=== PATIENT | female | born 1970 | race Hispanic/Latino ===

== ENCOUNTER → 2017-08-19 | Day surgery (SDC) | payer OTHER ==
[~2017-08-19] MED LIST: CEFTRIAXONE SOD 1 GM VIAL ONE; FENTANYL CITRATE/PF 100MCG/2 ML INJ ONE; IOPAMIDOL 610MG/1ML 300 MG/ML VIAL IV ONE; MIDAZOLAM HCL 2 MG/2 ML VIAL ONE
--- NOTE | 2017-08-19 12:44 | Diagnostic Imaging Report ---
PROCEDURE:X-RAY ABDOMEN - KUB COMPARISON:Retrograde pyelogram 07/02/17. INDICATIONS:PRE OP KIDNEY STONE REMOVAL FINDINGS: Bowel gas pattern: Normal. No dilated bowel loops. Organomegaly: None Calcifications: A subtle calcification over the right renal shadow measures 3-4 mm. Calcification overlying the left renal shadow, lower pole, measures 16 x 11 mm. This was present on previous exam. There no calcifications along the expected course of the ureters or in the pelvis. Bones: Degenerative changes of the lower lumbar spine. CONCLUSION: Bilateral intrarenal calculi. Calculus in the lower pole of the left kidney measures 16 mm and is stable in position. A right intrarenal calculus measures 3-4 mm. Unremarkable bowel gas pattern. Dictated by: Paz Doyle M.D. on 08/19/2017 at 12:51 Electronically approved by: Pza Doyle M.D. on 08/19/2017 at 12:51
--- NOTE | 2017-08-19 16:28 | Operative Report ---
DATE OF PROCEDURE: August 19, 2017 PREOPERATIVE DIAGNOSES 1. Left kidney stone. 2. Left hydronephrosis. 3. Microscopic hematuria. POSTOPERATIVE DIAGNOSES 1. Left kidney stone. 2. Left hydronephrosis. 3. Microscopic hematuria. PROCEDURES 1. Cystourethroscopy with right ureteral catheterization and right retrograde pyelogram (entirely separate procedure for microscopic hematuria). 2. Cystourethroscope with insertion of left indwelling stent (entirely separate procedure for left lower pole hydronephrosis). 3. Staged left-side shockwave lithotripsy. 4. Supervision of fluoroscopy. 5. Interpretation of retrograde pyelography. ANESTHESIA: General. COMPLICATIONS: None. INDICATIONS: Ms. Hinojosa is a 47-year-old female with a 1.75 x 1.5 cm left lower pole stone with segmental hydronephrosis. She has failed trial of passage. She and I had a long discussion in regard to the alternatives, the risks, and benefits including doing nothing, shockwave lithotripsy, ureteroscopy, percutaneous surgery, stent placement and the fact that the stent is a temporary indwelling device that must be removed and the failure to do so could cause incrustation, infection, inflammation of the natural ostium of the kidney, and even . She elected to proceed. PROCEDURE IN DETAIL: After informed consent was obtained, the patient was taken to the operative suite and placed supine on the operating table and underwent general anesthesia by the anesthesia service. She was then placed in the dorsal lithotomy position and sterilely prepped and draped in the standard fashion for cystoscopy. A 22.5-Botswanan cystoscope was inserted per urethra. No masses noted. Panendoscopy revealed no tumors and no stones. Both ureteral orifices were catheterized with a 5-Botswanan open-ended catheter. Retrograde pyelogram on the right side was normal. Left revealed a very large 1.7 x 0.5 cm renal calculus with hydronephrosis in avery. Ureteral stent was deployed, 6 x 24 cm, with a coil in the renal pelvis and a coil in the bladder. The patient's bladder was drained. Attention was then turned to the stone which was localized in X, Y, and Z planes. A total of 3000 shocks were delivered to the stone. The patient tolerated the procedure well, and was transported to the recovery room in excellent condition. No untoward affects noted SUPERVISION OF FLUOROSCOPY AND INTERPRETATION OF RETROGRADE PYELOGRAPHY: I was present the entire procedure, and I supervised the use of fluoroscopy. There was no radiologist present at any time during this procedure. Attention was turned toward the left and right ureteral orifice, which were catheterized with a 5-Botswanan open-ended catheter. Bilateral retrograde pyelograms were performed. On the right, revealed delicate ureter and delicate pelvicaliceal system. On the left, delicate ureter, a very large 1.75 x 1.5 cm lower pole stone with hydronephrosis in the avery. Postoperative views on the let side revealed stent in adequate position. IMPRESSION 1. Normal right retrograde pyelogram. 2. Large left lower pole stone, 1.75 x 1.5 cm. 3. Left lower pole stent in adequate position. Job#: [id number]
== END | disposition home or self-care (01) ==
LOC: OR 11:27
PROVIDERS: ATTEND Urology
DX: N13.2 Hydronephrosis with renal and ureteral calculous obstruction (principal); N39.0 Urinary tract infection, site not specified; R35.1 Nocturia; Z68.31 Body mass index [BMI] 31.0-31.9, adult
CPT/HCPCS: 50590; 52332; 74000; 81025; C1874; J0696; J2250; Q9967

== ENCOUNTER → 2017-10-02 | Day surgery (SDC) | payer OTHER ==
[~2017-10-02] MED LIST changes: +DEXAMETHASONE SOD PHOS INJ 4 MG/ML VIAL ONE; +KETOROLAC TROMETHAMINE 30 MG/ML VIAL ONE; +LIDOCAINE HCL 2% LOCAL INJ 5 ML SDV VIAL INJ ONE; +ONDANSETRON HCL INJ 2 MG/ML VIAL ONE; +OXYBUTYNIN CHLOR5 MG PO; +PROPOFOL IV EMULSION 10 MG/ML 20 ML VIAL ONE; +ROCURONIUM BROMIDE 10 MG/ML 5ML VIAL ONE; +SEVOFLURANE INHAL SOLN 250 ML PEN BTL ONE
--- OUTSIDE RECORDS SUMMARY | 2017-10-02 06:34 | XMS REPORT | Clinical Summary ---
Author Author [facility] Organization [facility] Address Unknown Phone Unavailable Care Team Providers Care Mottler Machine Feeder Name Role Phone Asked, Pcp PCP Unavailable Allergies No Known Allergies Current Medications Prescription Sig. Disp. Refills Start End Date Status Date levoFLOXacin (LEVAQUIN) Take 1 tablet (500 mg 7 tablet 0 06/09/20 500 MG tablet total) by mouth daily for 17 17 7 days. HYDROcodone-acetaminophen Take 1 tablet by mouth 30 tablet 0 06/09/20 07/09/20 (NORCO) 5-325 mg per every 4 (four) hours as 17 17 tablet needed for moderate pain for up to 30 days. Max Daily Amount: 6 tablets Active Problems Problem Noted Date Hydronephrosis due to obstruction of ureter 06/09/2017 Ureterolithiasis 06/06/2017 Encounters Date Type Specialty Care Team Description 06/09/2017 Patient Quality Tita Tovar RN Outreach 06/08/2017 Anesthesia General Surgery Papo Post MD Event 06/08/2017 Procedure Pass General Surgery 06/08/2017 Surgery General Surgery Dario Quintero MD Left Ureteroscopy with Stone Laser 06/06/2017 [facility] General Internal Medicine Hilary Levine MD Ureterolithiasis (Primary - Encounter Dx) 06/09/2017 after 10/01/2016 Social History Tobacco Use Types Packs/Day Years Used Date Never Smoker Smokeless Tobacco: Never Used Alcohol Use Drinks/Week oz/Week Comments No Sex Assigned at Date Recorded Not on file Last Filed Vital Signs Vital Sign Reading Time Taken Blood Pressure 140/76 06/09/2017 7:12 AM CDT Pulse 72 06/09/2017 7:12 AM CDT Temperature 36.1 C (97 F) 06/09/2017 7:12 AM CDT Respiratory Rate 18 06/09/2017 7:12 AM CDT Oxygen Saturation 98% 06/09/2017 7:12 AM CDT Inhaled Oxygen - - Concentration Weight - - Height 152.4 cm (5') 06/06/2017 7:31 PM CDT Body Mass Index - - Plan of Treatment Health Maintenance Due Date Last Done Comments PAP SMEAR 1989 INFLUENZA VACCINE 03/31/2017 Implants Implanted Type Area Roll Coating Machine Operator Device Expiration Model / Identifier Date Serial / Lot Stent Uretl Inlay Domino 6fr 22cm Surgical Left: [employer] 2019 [id number] / W/ Marcio Guardado Ltxf - [id number] Stents Ureter, DIVISION / Implanted: Qty: 1 on 06/08/2017 by [place] [id number] Dario Quintero MD Procedures Procedure Name Priority Date/Time Associated Diagnosis Comments WI AN ELECTIVE Routine 06/08/2017 SUPRAGLOTTIC AIRWAY 1:07 PM CDT Procedure Note - Papo Post MD - 06/08/2017 1:07 PM CDT Airway Date/Time: 06/08/2017 1:05 PM Performed by: PAPO POST Authorized by: PAPO POST Location: OR Urgency: Elective Difficult Airway: No Performed by: anesthesio logist Preoxygena rd with 100% O2: Yes C-spine Precaution s Maintained Throughout : Yes Mask Ventilatio n: Easy mask Final Airway Type: Supraglott ic airway Final LMA: Classic LMA Size: 3 Number of Attempts at Approach: 1 after 10/01/2016 Results * Estimated GFR (06/09/2017 4:20 AM) Only the most recent of 3 results within the time period is included. Component Value Ref Range GFR Non Af Amer 89 mL/min/1.73 m2 GFR Af Amer >90 mL/min/1.73 m2 Comment: Chronic kidney disease: <60 mL/min/1.73m2 Kidney failure: <15 mL/min/1.73m2 The estimated GFR is calculated from the IDMS-traceable Modification of Diet in Renal Disease Equation. The accuracy of the calculation is poor when the creatinine is normal. Calculated values >90 mL/min/1.73m2 are not reported. This equation has not been validated in children (<18 years), women, the elderly (>70 years), or ethnic groups other than Caucasians and Americans. Specimen Performing Laboratory Plasma specimen [facility] [address] [place] [address] * CBC with platelet and differential (06/09/2017 4:20 AM) Only the most recent of 3 results within the time period is included. Component Value Ref Range WBC 11.5 (H) 4.2 - 11.0 k/uL RBC 4.29 4.04 - 5.86 m/uL HGB 13.5 11.5 - 15.3 g/dL HCT 40.4 34.0 - 45.0 % MCV 94.2 80.0 - 98.0 fL MCH 31.5 27.0 - 34.0 pg MCHC 33.4 31.5 - 36.5 g/dL RDW - SD 43.3 37.0 - 51.0 fL MPV 10.4 7.4 - 10.4 fL Platelet count 309 150 - 400 k/uL Nucleated RBC 0.00 /100 WBC Neutrophils 76.5 (H) 36.0 - 66.0 % Lymphocytes 15.5 (L) 24.0 - 44.0 % Monocytes 6.8 (H) 0.0 - 6.0 % Eosinophils 0.3 0.0 - 6.0 % Basophils 0.2 0.0 - 1.2 % Immature granulocytes 0.7 0.0 - 1.0 % Specimen Performing Laboratory Blood [facility] [address] [place] [address] * Basic metabolic panel (06/09/2017 4:20 AM) Only the most recent of 3 results within the time period is included. Component Value Ref Range Sodium 137 135 - 150 mEq/L Potassium 4.3 3.5 - 5.0 mEq/L Chloride 105 100 - 109 mEq/L CO2 25 24 - 32 mmol/L Anion gap 7 7 - 15 mEq/L Comment: Starting from November , anion gap calculation no longer incorporates potassium. Please note the change. BUN 13 7 - 18 mg/dL Creatinine 0.7 (L) 0.8 - 1.5 mg/dL Glucose 109 (H) 65 - 100 mg/dL Calcium 8.4 (L) 8.6 - 10.7 mg/dL Specimen Performing Laboratory Plasma specimen [facility] [address] [place] [address] * FL Pyelogram Retrograde (06/08/2017 1:45 PM) Specimen Performing Laboratory [facility] [address] [place] [address] Narrative EXAMINATION:FL PYELOGRAM RETROGRADE IMPRESSION: Fluoroscopy was utilized in the operating room by the clinician.A radiologist was not present during the procedure.Correlation with the operative/procedure report is needed. [id number] Procedure Note Interface, Radiology Results Incoming - 06/08/2017 4:13 PM CDT EXAMINATION: FL PYELOGRAM RETROGRADE IMPRESSION: Fluoroscopy was utilized in the operating room by the clinician. A radiologist was not present during the procedure. Correlation with the operative/procedure report is needed. [id number] * hCG qualitative, serum screen (06/08/2017 4:34 AM) Component Value Ref Range hCG qualitative, serum Negative Comment: The manufacturers stated sensitivity of HcG test for serum is >/=10 mIU/ml and urine is >/=20mIU/ml. Specimen Performing Laboratory Blood [facility] [address] [facility] [place] [address] * XR Abdomen 1 Vw (06/07/2017 8:07 PM) Specimen Performing Laboratory [facility] [address] [place] [address] Narrative EXAM:XR ABDOMEN 1 VW CLINICAL HISTORY:Flank Pain COMPARISON:None. IMPRESSION: The bowel gas pattern is nonspecific, nonobstructive. Small moderate amount of stool noted scattered within the ascending, transverse, and descending colon. The rectosigmoid colon is gaseous filled. Calcification overlying the lower pole of the left kidney is noted. Smaller right renal calcification also suggested. Correlate finding with clinical history. Noncontrast CT may be obtained for further evaluation. Otherwise no pathologic masses or calcifications are identified. No acute osseous abnormality identified. [id number] Procedure Note Interface, Radiology Results Incoming - 06/07/2017 8:19 PM CDT EXAM: XR ABDOMEN 1 VW CLINICAL HISTORY: Flank Pain COMPARISON: None. IMPRESSION: The bowel gas pattern is nonspecific, nonobstructive. Small moderate amount of stool noted scattered within the ascending, transverse, and descending colon. The rectosigmoid colon is gaseous filled. Calcification overlying the lower pole of the left kidney is noted. Smaller right renal calcification also suggested. Correlate finding with clinical history. Noncontrast CT may be obtained for further evaluation. Otherwise no pathologic masses or calcifications are identified. No acute osseous abnormality identified. [id number] after 10/01/2016 Insurance Payer Benefit Subscriber ID Type Phone Address Plan / Group AETNA AETNA [id number] [place] [address]
--- OUTSIDE RECORDS SUMMARY | 2017-10-02 06:34 | XMS REPORT ---
Author Author [facility] Address Unknown Phone Unavailable Care Team Providers Care Chocolate Temperer Name Role Phone GARETH CENTENO Unavailable Unavailable Problems This patient has no known problems. Allergies, Adverse Reactions, Alerts This patient has no known allergies or adverse reactions. Medications This patient has no known medications. Encounters Start Date/Time End Date/Time Encounter Type Admission Type Attending Clinicians Care Facility Care Department Encounter ID 2016-06-10 15:26:49 2016-06-10 15:26:49 Outpatient [facility] [id number] Results Test Description Test Time Test Comments Text Results Atomic Results Result Comments ABDOMEN-1VIEW (KUB) [place] [address] Patient Name: CAR VIVAR MR #: [id number] : 1970 Age/Sex: 47/F Req # : [id number] Adm Physician: Ordered by: GARETH CENTENO MD Report #: [id number] Location: OR Room/Bed: Procedure: [id number] DX/ABDOMEN-1VIEW (KUB) Exam Date: Exam Time: REPORT STATUS: Signed PROCEDURE: X-RAY ABDOMEN - KUB COMPARISON: Retrograde pyelogram 07/02/17. INDICATIONS: PRE OP KIDNEY STONE REMOVAL FINDINGS: Bowel gas pattern: Normal. No dilated bowel loops. Organomegaly: None Calcifications: A subtle calcification over the right renal shadow measures 3-4 mm. Calcification overlying the left renal shadow, lower pole, measures 16 x 11 mm. This was present on previous exam. There no calcifications along the expected course of the ureters or in the pelvis. Bones: Degenerative changes of the lower lumbar spine. CONCLUSION: Bilateral intrarenal calculi. Calculus in the lower pole of the left kidney measures 16 mm and is stable in position. A right intrarenal calculus measures 3-4 mm. Unremarkable bowel gas pattern. Dictated by: Cha Doyle M.D. on 08/19/2017 at 12:51 Electronically approved by: Cha Doyle M.D. on 08/19/2017 at 12:51 Dictated By: CHA DOYLE MD 1251 Transcribed By: RINA on 08/19/17 1251 COPY TO: GARETH CENTENO MD
--- NOTE | 2017-10-02 09:32 | Operative Report ---
DATE OF PROCEDURE: October 02, 2017 PREOPERATIVE DIAGNOSES: 1. Indwelling left ureteral stent. 2. Left ureteral calculus. POSTOPERATIVE DIAGNOSES: 1. Indwelling left ureteral stent. 2. Left ureteral calculus with bladder calculus greater than 2.5 cm. PROCEDURES: 1. Cystolitholapaxy, large stone (greater than 2.5 cm). 2. Complicated removal of indwelling left ureteral stent (entirely separate procedure for encrusted left ureteral stent with bladder stone). 3. Left-sided ureteroscopy with laser lithotripsy (entirely separate procedure for the left ureteral calculus). 4. Supervision of fluoroscopy. 5. Interpretation of retrograde pyelography. ANESTHESIA: General. ESTIMATED BLOOD LOSS: Minimal. COMPLICATIONS: None. INDICATIONS: Ms. Hinojosa is a very pleasant 47-year-old female, who presented in July for ureteroscopy, now presents for stent removal. She voiced understanding of the options, alternatives, the risks and benefits, and elected to proceed. PROCEDURE IN DETAIL: After informed consent was obtained, the patient was taken to the operative suite, placed supine on operative table and underwent general anesthesia by the anesthesia services. She was placed in dorsal lithotomy position and sterilely prepped and draped in standard fashion for cystoscopy. A 22.5-Uzbek cystoscope was inserted per urethra. There was a very large approximately 4-cm stone completely encrusting the outside of the left ureteral stent. Utilizing 550 micron laser fiber, the the stent. At this time, a guidewire was inserted alongside the stent. The stent was removed with a moderate degree of difficulty. The ureteroscope was driven up to alongside the safety wire and multiple ureteral calculi, almost steinstrasse is seen. Utilizing the laser fiber, the stones were obliterated into fragments smaller than the wire. At this time with no other stone seen, the ureteroscope was driven to the level of the renal pelvis. A retrograde pyelogram was performed through the ureteroscope revealing no other stones. At this time, the guidewire and ureteroscope were removed. The bladder was drained. The patient was awakened from anesthesia and transported to the recovery room in excellent condition. SUPERVISION OF FLUOROSCOPY AND INTERPRETATION OF RETROGRADE PYELOGRAPHY: I was present throughout the entire procedure and I supervised the use of fluoroscopy. There was no radiologist present at any time during this procedure. Attention was turned towards the left and right ureteral orifices. The left ureteral orifice was catheterized with ureteroscope. Bilateral retrograde pyelograms were performed through the ureteroscope revealing a dilated collecting system, no other stone seen. IMPRESSION: 1. Chronic hydronephrosis. 2. Interim removal of left ureteral stent. 3. Interim removal of left ureteral calculus. Job#: [id number]
== END | disposition home or self-care (01) ==
LOC: OR 06:32
PROVIDERS: ATTEND Urology
DX: N20.1 Calculus of ureter (principal); Z46.6 Encounter for fitting and adjustment of urinary device; N21.0 Calculus in bladder; N20.0 Calculus of kidney; N13.30 Unspecified hydronephrosis; N39.0 Urinary tract infection, site not specified; R35.1 Nocturia; Z68.31 Body mass index [BMI] 31.0-31.9, adult
CPT/HCPCS: 52353; 74420; 81025; J0696; J1100; J1885; J2001; J2250; J2405; Q9967

== ENCOUNTER → 2018-01-27 | Outpatient (CLI) | payer OTHER ==
[~2018-01-27] MED LIST changes: -CEFTRIAXONE SOD 1 GM VIAL ONE; -DEXAMETHASONE SOD PHOS INJ 4 MG/ML VIAL ONE; -FENTANYL CITRATE/PF 100MCG/2 ML INJ ONE; -IOPAMIDOL 610MG/1ML 300 MG/ML VIAL IV ONE; -KETOROLAC TROMETHAMINE 30 MG/ML VIAL ONE; -LIDOCAINE HCL 2% LOCAL INJ 5 ML SDV VIAL INJ ONE; -MIDAZOLAM HCL 2 MG/2 ML VIAL ONE; -ONDANSETRON HCL INJ 2 MG/ML VIAL ONE; -PROPOFOL IV EMULSION 10 MG/ML 20 ML VIAL ONE; -ROCURONIUM BROMIDE 10 MG/ML 5ML VIAL ONE; -SEVOFLURANE INHAL SOLN 250 ML PEN BTL ONE
--- NOTE | 2018-01-27 10:39 | Diagnostic Imaging Report ---
PROCEDURE:X-RAY ABDOMEN - KUB COMPARISON:08/19/2017. INDICATIONS:CALCULUS OF KIDNEY FINDINGS: Previously described large calculus projecting over the lower pole of the left renal shadow is no longer identified. Unchanged 3 mm calcification projecting over the lower pole of the right renal shadow. No additional calcification project over the renal shadows, expected ureteral courses, or urinary bladder. Bowel gas pattern is nonobstructive. Regional skeletal structures are intact. CONCLUSION: Large left lower pole renal calculus is no longer identified. Stable 3-4 mm right lower pole renal calculus. Dictated by: Jaskaran Pacheco M.D. on 01/27/2018 at 10:41 Electronically approved by: Jaskaran Pacheco M.D. on 01/27/2018 at 10:41
== END ==
LOC: RAD 09:41
PROVIDERS: ATTEND Urology
DX: N20.0 Calculus of kidney (principal)
CPT/HCPCS: 74018

== ENCOUNTER → 2018-05-19 | Outpatient (CLI) | payer OTHER ==
--- NOTE | 2018-05-19 08:35 | Diagnostic Imaging Report ---
PROCEDURE:X-RAY ABDOMEN - KUB COMPARISON:01/27/2018. INDICATIONS:CALCULUS OF THE KIDNEY FINDINGS: Unchanged 3 mm calculus projecting over the right renal shadow. No additional calcifications project over the renal shadows or expected ureteral courses. Bowel gas pattern is nonobstructive. Regional skeletal structures are intact. CONCLUSION: Stable 3 mm right renal calculus. Dictated by: Jaskaran Pacheco M.D. on 05/19/2018 at 8:42 Electronically approved by: Jaskaran Pacheco M.D. on 05/19/2018 at 8:42
== END ==
LOC: RAD 08:12
PROVIDERS: ATTEND Urology
DX: N20.0 Calculus of kidney (principal)
CPT/HCPCS: 74018

== ENCOUNTER → 2018-08-04 | Outpatient (CLI) | payer OTHER ==
--- NOTE | 2018-08-04 16:15 | Diagnostic Imaging Report ---
EXAM: ABDOMEN-1VIEW (KUB) DATE: 08/04/2018 3:57 PM INDICATION: Renal stone COMPARISON: 05/19/2018, no report available FINDINGS: Bowel Gas Pattern: Non-obstructive. Pneumoperitoneum: None. Suspicious Calcifications: Tiny calcification overlying mid right kidney. Other: Degenerative changes lower lumbar spine. IMPRESSION: Probable right nephrolithiasis. Signed by: Dr. Eamon Carter MD on 08/04/2018 4:12 PM
== END ==
LOC: RAD 15:37
PROVIDERS: ATTEND Urology
DX: N20.0 Calculus of kidney (principal)
CPT/HCPCS: 74018